=== PATIENT | male | born 1975 | race Two or more races ===

== ENCOUNTER 2024-04-29 10:00 | Emergency (ER) | payer MEDICAID ==
[~2024-04-29] VITALS: Ht 185.4 cm; Wt 103.0 kg
--- NOTE | 2024-04-29 10:18 | ECG ---
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
--- NOTE | 2024-04-29 10:27 | ED.PDOC ---
HPI Comments 48Y M presents to ED for chief complaint chest pain x 6 weeks. Pt states chest pain is left-sided and sometimes radiates to left upper arm. Pt describes chest pain as pressure. Pt states pain began yesterday while at the gym but has begun while at rest as well. Per pt, pain is relieved with stretches. He denies associated dizziness, diaphoresis, nausea or vomiting. When asked if he as associated SOB, he states, "I've always felt like it's hard to catch my breath." Pt was seen by PCP yesterday who referred pt to ED for cardiac work-up. Pt denies all medical/surgical history. Pt denies FHx of heart disease. Pt denies h/o smoking/vaping. No other symptoms reported. Chief Complaint: Chest Pain Time Seen by MD: 10:14 Reviewed Notes: Nurses Notes, Medications, Allergies Allergies: Coded Allergies: NO KNOWN ALLERGIES (Unverified , 04/29/24) Home Meds Active Scripts Methocarbamol (Methocarbamol) 500 Mg Tab, 2 TAB PO Q8HP PRN, #60 TAB prn muscle tightness/spasm Prov:ANGELA TOMLIN MD 04/29/24 Ibuprofen Micronized (Ibuprofen) 800 Mg Tab, 800 MG PO Q8HP PRN, #30 TAB prn pain, take with food Prov:ANGELA TOMLIN MD 04/29/24 Information Source: Patient Mode of Arrival: Ambulatory Severity: Mild Timing: Days Duration: Intermittent Prehospital treatment: None Location: Chest (L) Radiation: Arm (L) Quality: Pressure Onset: At Rest, With Light Exertion Cardiac Risk Factors: None PE Risk Factors: None History of: None Modifying Factors: Other (stretching) Associated Signs and Symptoms: None Past Medical History PAST MEDICAL HISTORY: Denies Surgical History: Denies all surgeries Family History Family History: No family hx of Heart emily Social History Smoker: Non-Smoker Alcohol: Denies ETOH Use Drugs: Denies Drug Use Lives In: Home Constitutional: denies: chills, diaphoresis, fatigue, fever, malaise, sweats, weakness, others EENTM: denies: blurred vision, double vision, ear bleeding, ear discharge, ear drainage, ear pain, ear ringing, eye pain, eye redness, hearing loss, mouth pain, mouth swelling, nasal discharge, nose bleeding, nose congestion, nose pain, photophobia, tearing, throat pain, throat swelling, voice changes, others Respiratory: denies: cough, hemoptysis, orthopnea, SOB at rest, shortness of breath, SOB with excertion, stridor, wheezing, others Cardiovascular: reports: chest pain, left arm pain; denies: dizzy spells, diaphoresis, Dyspnea on exertion, edema, irregular heart beat, lightheadedness, palpitations, PND, syncope, others Gastrointestinal: denies: abdomen distended, abdominal pain, blood streaked bowels, constipated, diarrhea, dysphagia, difficulty swallowing, hematemesis, melena, nausea, poor appetite, poor fluid intake, rectal bleeding, rectal pain, vomiting, others Genitourinary: denies: burning, dysuria, flank pain, frequency, hematuria, incontinence, penile discharge, penile sore, pain, testicle pain, testicle swelling, urgency, others Neurological: denies: dizziness, fainting, headache, left sided numbness, left sided weakness, numbness, paresthesia, pre-existing deficit, right sided numbne ss, right sided weakness, seizure, speech problems, tingling, tremors, weakness, others Musculoskeletal: denies: back pain, gout, joint pain, joint swelling, muscle pain, muscle stiffness, neck pain, others Integumetry: denies: bruises, change in color, change in hair/nails, dryness, laceration, lesions, lumps, rash, wounds, others Allergic/Immunocompromised: denies: Difficulty Healing, Frequent Infections, Hives, Itching, others Hematologic/Lymphatic: denies: anemia, blood clots, easy bleeding, easy bruising, swollen glands, others Endocrine: denies: excessive hunger, excessive sweating, excessive thirst, excessive urination, flushing, intolerance to cold, intolerance to heat, unexplained weight gain, unexplained weight loss, others Psychiatric: denies: anxiety, bipolar disorder, depression, hopeless, panic disorder, schizophrenia, sleepless, suicidal, others All Other Systems: Reviewed and Negative Physical Exam General Appearance: No Apparent Distress HEENT: PERRL/EOMI Neck: Full Range of Motion, Normal Inspection Respiratory: Lungs Clear, No Accessory Muscle Use, No Respiratory Distress, Normal Breath Sounds Cardiovascular: No Edema, No JVD, Regular Rate/Rhythm Breast Exam: Deferred Gastrointestinal: Non Tender, Soft Genitalia: Deferred Pelvic: Deferred Rectal: Deferred Extremities: Normal inspection, Normal range of motion, Non-tender, No pedal edema Neurologic: Alert (oriented x 4), Normal Affect, Normal Mood, Other (ambulatory. no gross focal deficit.) Cerebellar Function: NOT DONE Reflexes: NOT DONE Skin: Dry, Normal Color, Warm Lymphatic: NOT DONE EKG EKG #1: Comments Sinus rhythm, rate 73, normal intervals, normal axis, incomplete right bundle- branch block, no ST/T changes. EKG #2: Comments Sinus rhythm, rate 63, normal intervals, normal axis, incomplete right bundle- branch block, no ST/T changes. No significant change from EKG 1. Was a procedure done? Was a procedure done?: No CP Differential Dx Differential Diagnosis: Angina, Anxiety / Panic Attack, Electrolyte Disorder, Pulmonary Embolus Differential Diagnosis: CHF Differential Diagnosis: Chest Wall Pain, Esophageal reflux/spasm, Gastritis, Myocardial Infarction, Pericarditis, Pneumonia X-Ray, Labs, Meds, VS Vital Signs Date Time Temp Pulse Resp B/P (MAP) Pulse Ox O2 Delivery O2 Flow Rate FiO2 04/29/24 12:01 98.0 04/29/24 10:57 74 17 95 Room Air* 0 21 04/29/24 10:57 97.5 74 17 123/68 (86) 95 97.5 04/29/24 10:53 64 04/29/24 10:09 73 04/29/24 10:02 98.0 78 18 129/78 (95) 96 98.0 Lab Test 04/29/24 10:54 04/29/24 10:04 Range/Units Troponin I High Sensitivity < 3 L < 3 L </=54 ng/L White Blood Count 10.4 4.4-10.8 10^3/uL Red Blood Count 5.30 4.5-5.90 10^6/uL Hemoglobin 16.8 13.5-17.5 g/dL Hematocrit 48.6 41.0-53.0 % Mean Corpuscular Volume 91.7 80.0-100.0 fL Mean Corpuscular Hemoglobin 31.6 28.0-32.0 pg Mean Corpuscular Hemoglobin Concent 34.5 32.0-36.0 g/dL Red Cell Distribution Width 13.7 11.8-14.3 % Platelet Count 274 140-450 10^3/uL Mean Platelet Volume 7.0 6.9-10.8 fL Neutrophils (%) (Auto) 58.6 37.0-80.0 % Lymphocytes (%) (Auto) 29.2 10.0-50.0 % Monocytes (%) (Auto) 6.5 0.0-12.0 % Eosinophils (%) (Auto) 5.2 0.0-7.0 % Basophils (%) (Auto) 0.5 0.0-2.0 % Neutrophils # (Auto) 6.1 1.6-8.6 10 ^3/uL Lymphocytes # (Auto) 3.0 0.4-5.4 10 ^3/uL Monocytes # (Auto) 0.7 0-1.3 10 ^3/uL Eosinophils # (Auto) 0.5 0-0.8 10 ^3/uL Basophils # (Auto) 0.1 0-0.2 10 ^3/uL Nucleated Red Blood Cells 0.2 % Sodium Level 137 136-145 mmol/L Potassium Level 4.6 3.5-5.1 mmol/L Chloride Level 105 98-107 mmol/L Carbon Dioxide Level 25 20-31 mmol/L Anion Gap 7 5-15 Blood Urea Nitrogen 13 9-23 mg/dL Creatinine 1.22 0.700-1.30 mg/dL Glomerular Filtration Rate Calc 74 >90 mL/min BUN/Creatinine Ratio 10.7 10.0-20.0 Serum Glucose 91 74-106 mg/dL Calcium Level 10.0 8.7-10.4 mg/dL B-Type Natriuretic Peptide 15.53 0-100 pg/mL Current Medications Medications (Trade) Dose Ordered Sig/Avila Route Start Time Stop Time Status Last Admin Ibuprofen (Motrin Tablet) 800 mg ONCE ONCE PO 04/29/24 10:30 04/29/24 10:51 DC 04/29/24 10:56 Methocarbamol (Robaxin) 1,000 mg ONCE ONCE PO 04/29/24 10:30 04/29/24 10:51 DC 04/29/24 10:55 ORDERING PHYSICIAN: ANGELA TOMLIN MD PROCEDURE(s): CXRP - CHEST PORTABLE REASON: cp ORDER NUMBER(s): [id number], ACCESSION NUMBER(s): [id number] CHEST RADIOGRAPH Indication: cp Technique: Single frontal view of the chest was obtained COMPARISON: None FINDINGS: Lines and Tubes: None Lungs: Clear Pleura: No effusion. No pneumothorax. Cardiomediastinal contours: Unremarkable Bones: Unremarkable IMPRESSION: No acute disease. X-Ray, Labs, Meds, VS Comment 48-year-old male with no significant past medical history referred to ER by his primary physician for evaluation of chest pressure and left upper extremity tightness for the last 6 weeks, onset after working out at the gym Vitals unremarkable Exam unremarkable Rhythm strip independently interpreted by me: Sinus rhythm, rate 73, no ectopy. Chest x-ray unremarkable CBC, basic metabolic panel, BNP and 2 serial troponins unremarkable for any abnormality of acute significance Patient treated with the following in the ED: Ibuprofen 800 mg p.o., Robaxin 1 g p.o. On re-evaluation, patient is asymptomatic. Vitals are unremarkable. Heart score is 1, PERC criteria are satisfied. I am comfortable discharging the patient with close follow-up with his primary physician for referral to a college service officer for further evaluation of his chest pain. Patient will also be referred to Dr. Rogers. Time of 1ST Reevaluation: 10:44 Reevaluation 1ST: Unchanged Patient Education/Counseling: Diagnosis, Treatment Family Education/Counseling: No Family Present Departure 1 Departure Time of Disposition: 12:19 Impression: Primary Impression: Chest pain with low risk for cardiac etiology Disposition: 01 HOME / SELF CARE / HOMELESS Condition: Stable Referrals: MARA ROGERS MD Additional Instructions: Your blood tests, including screening test for heart attack and heart failure, were unremarkable. Your chest x-ray was normal. Your EKG was unremarkable. I have prescribed medication for your symptoms. Follow-up with your primary doctor in 1-2 days for referral to a college service officer for further evaluation. Alternatively, you may follow-up directly with Dr. Rogers. e-Prescriptions Methocarbamol (Methocarbamol) 500 Mg Tab 2 TAB PO Q8HP PRN, #60 TAB prn muscle tightness/spasm Prov: ANGELA TOMLIN MD 04/29/24 Ibuprofen Micronized (Ibuprofen) 800 Mg Tab 800 MG PO Q8HP PRN, #30 TAB prn pain, take with food Prov: ANGELA TOMLIN MD 04/29/24 Discharged With: Self Critical Care Note Critical Care Time?: No Stability Stability form required: No Heart Score Heart Score: Heart Score Response (Comments) Value History Slightly Suspicious 0 EKG Normal 0 Age 45-64 1 Risk Factors No known risk factors 0 Troponin Normal limit 0 Total 1 I personally scribed for ANGELA TOMLIN MD ([email or web address]) on 04/29/24 at 10:27. Electronically submitted by Justina Leung ([employer]). I personally scribed for ANGELA TOMLIN MD ([email or web address]) on 04/29/24 at 11:04. Electronically submitted by Justina Lueng ([employer]). ANGELA TOMLIN MD Apr 29, 2024 10:27
[2024-04-29] MEDS ORDERED: IBUP-1455 PO (10:42)
[2024-04-29] MEDS ORDERED: METH-1181 PO (10:42)
[2024-04-29 10:45] LABS: Chloride 105 mmol/L (98-107); Potassium 4.6 mmol/L (3.5-5.1); Sodium 137 mmol/L (136-145)
--- NOTE | 2024-04-29 10:45 | DVH ---
CHEST RADIOGRAPH Indication: cp Technique: Single frontal view of the chest was obtained COMPARISON: None FINDINGS: Lines and Tubes: None Lungs: Clear Pleura: No effusion. No pneumothorax. Cardiomediastinal contours: Unremarkable Bones: Unremarkable IMPRESSION: No acute disease.
[2024-04-29 10:46] LABS: Anion Gap 7 (5-15); Carbon Dioxide 25 mmol/L (20-31)
[2024-04-29 10:48] LABS: Basophils # (auto) 0.1 10 ^3/uL (0-0.2); Basophils % (auto) 0.5 % (0.0-2.0); Eosinophils # (auto) 0.5 10 ^3/uL (0-0.8); Eosinophils % (auto) 5.2 % (0.0-7.0); Hematocrit 48.6 % (41.0-53.0); Hemoglobin 16.8 g/dL (13.5-17.5); Lymphocytes % (auto) 29.2 % (10.0-50.0); Mean Corpuscular Hemoglobin 31.6 pg (28.0-32.0); Mean Corpuscular Hgb Conc. 34.5 g/dL (32.0-36.0); Mean Corpuscular Volume 91.7 fL (80.0-100.0); Monocytes # (auto) 0.7 10 ^3/uL (0-1.3); Monocytes % (auto) 6.5 % (0.0-12.0); Neutrophils # (auto) 6.1 10 ^3/uL (1.6-8.6); Neutrophils % (auto) 58.6 % (37.0-80.0); Nucleated Red Blood Cells % 0.2 %; Platelet Count (auto) 274 10^3/uL (140-450); Red Cell Distribution Width 13.7 % (11.8-14.3); White Blood Cell 10.4 10^3/uL (4.4-10.8)
[2024-04-29 10:51] LABS: BUN/Creatinine Ratio 10.7 (10.0-20.0); Blood Urea Nitrogen 13 mg/dL (9-23); Glucose 91 mg/dL (74-106)
[2024-04-29] MEDS: METHOCARBAMOL 500 MG TAB PO ONE (10:55)
[2024-04-29] MEDS: IBUPROFEN 800 MG TAB PO ONE (10:56)
[2024-04-29 10:57] VITALS: PULSE 74; RESP 17; O2SAT 95
[2024-04-29 12:30] VITALS: BP 132/76; PULSE 78; RESP 17; TEMP 98.7; O2SAT 97
== END 2024-04-29 12:31 | disposition home or self-care (01) ==
LOC: ER 10:00
DX: R07.89 Other chest pain (principal)
CPT/HCPCS: 36415; 71045; 80048; 83880; 84484; 85025; 93005